=== PATIENT | male | born 1995 | race Caucasian/White ===

== ENCOUNTER 2016-11-13 11:15 | Emergency (ER) | payer OTHER ==
[2016-11-13 11:26] VITALS: BP 143/90; PULSE 101; RESP 18; TEMP 99.1
--- NOTE | 2016-11-13 11:47 | ED ---
General Adult HPI - General Chief complaint: Skin/Abscess/Foreign Body Stated complaint: arm pit abcess Time Seen by Provider: 11/13/16 11:33 Source: patient Mode of arrival: ambulatory Limitations: no limitations - History of Present Illness Initial comments: 21-year-old male presenting for left axillary abscess. Patient states that it began as a pimple and has worsened over the past 5 days. He denies any fevers or chills. He does state that he has been able to express some pus from the site on several different occasions over the past 2 days. He denies any tracking of infection and to his arm or chest. States the area seems to be becoming larger and more painful. He is concerned he may have been exposed to MRSA as he shared a towel with his roommate who has had MRSA infection past. He denies any recent antibiotic therapy. - Related Data Previous Rx's Medication Instructions Recorded HYDROcodone/APAP 5-325MG [[place] 1 tab PO Q6HR PRN #12 tab 11/13/16 5-325] Ibuprofen [Motrin] 800 mg PO Q8HR PRN #21 tab 11/13/16 Sulfamethox-Tmp 800-160Mg [Bactrim 2 each PO Q12HR 10 Days 11/13/16 Ds] Allergies Allergy/AdvReac Type Severity Reaction Status Date / Time No Known Allergies Allergy Verified 11/13/16 11:53 Review of Systems ROS Statement: Those systems with pertinent positive or pertinent negative responses have been documented in the HPI. ROS Other: All systems not noted in ROS Statement are negative. Past Medical History Past Medical History: No Reported History History of Any Multi-Drug Resistant Organisms: None Reported Past Surgical History: Orthopedic Surgery Additional Past Surgical History / Comment(s): foot Past Psychological History: No Psychological Hx Reported Smoking Status: Current every day smoker Past Alcohol Use History: None Reported Past Drug Use History: None Reported General Exam - General Exam Comments Initial Comments: General: Awake and Alert. No acute distress. Does not appear acutely ill. Eyes: ANDREA, EOM intact. No nystagmus. No scleral icterus. HENT: Atraumatic, normocephalic. Mucous membranes moist. Trachea midline. Neck: The neck is supple, there is no tenderness or JVD. Cardiovascular: Regular rate and rhythm. No murmur, rub, or gallop is appreciated. Distal pulses intact. Respiratory: Lungs are clear to auscultation bilaterally. No wheezes, rales, rhonchi. No respiratory distress. Gastrointestinal: Soft, Nontender. No rebound or guarding. Non-distended. No masses or organomegaly noted. No CVA tenderness. Musculoskeletal: No tenderness. Normal ROM. No gross deformity. No strength deficits. Neurological: A&Ox3. CN II-XII grossly intact, There are no obvious motor or sensory deficits. Coordination appears grossly intact. Speech is normal. Skin: Skin is warm and dry. Left axilla with indurated area approximately 3 cm x 3 cm with an overlying pustule. There is mild area of erythema overlying this but no evidence of spreading cellulitis. There is no underlying fluctuance appreciated. Psychiatric: Cooperative, appropriate mood & affect, normal judgment. Limitations: no limitations Course Vital Signs 11/13/16 11:23 Temperature 99.1 F Pulse Rate 101 H Respiratory 18 Rate Blood Pressure 143/90 O2 Sat by Pulse 99 Oximetry Medical Decision Making - Medical Decision Making 21-year-old male presenting for left axillary abscess. There is a pustule in the area and he states the area has had some spontaneous drainage. He was able to express some purulent material earlier today. Examination shows firm and indurated area but no specific fluctuance. Given that it is spontaneously draining, discussed no further I&D at this point. Discussed covering on antibiotics with MRSA coverage for possible exposure. Does not appear septic at this time. Discussed using warm compresses to help draw out infection and not to continue to irritate the area by squeezing. Discussed if this is not improving or worsening to return for I&D. Discussed follow-up with PCP. Discussed concerning signs symptoms for immediate return to the ED. Patient is agreeable with plan and discharge home. Disposition Clinical Impression: Axillary abscess Disposition: HOME SELF-CARE Condition: Stable Instructions: Abscess (ED) Prescriptions: HYDROcodone/APAP 5-325MG [[place]oyle 5-325] 1 tab PO Q6HR PRN #12 tab PRN Reason: Pain Ibuprofen [Motrin] 800 mg PO Q8HR PRN #21 tab PRN Reason: Pain Sulfamethox-Tmp 800-160Mg [Bactrim Ds] 2 each PO Q12HR 10 Days Referrals: None,Stated [Primary Care Provider] - 1-2 days Time of Disposition: 11:47
== END 2016-11-13 12:03 | disposition home or self-care (01) ==
LOC: EC 11:15
DX: L02.412 Cutaneous abscess of left axilla (principal); F17.200 Nicotine dependence, unspecified, uncomplicated
CPT/HCPCS: 99283

== ENCOUNTER 2016-11-15 17:45 | Emergency (ER) | payer OTHER ==
[2016-11-15 17:57] VITALS: BP 126/74; PULSE 74; RESP 16; TEMP 97
--- NOTE | 2016-11-15 18:06 | ED ---
Skin/Abscess/FB HPI - General Chief complaint: Skin/Abscess/Foreign Body Stated complaint: left underarm, poss mrsa Time Seen by Provider: 11/15/16 17:59 Source: patient, RN notes reviewed Mode of arrival: ambulatory Limitations: no limitations - History of Present Illness Initial comments: 21-year-old male presents concerned that he may have MRSA. Patient was seen here and treated for an abscess. Patient states that the medications and he has had much improvement. Patient states he does not know if he has MRSA or not. Patient states that minimal drainage from the area from time to time. Patient denies any history of MRSA. Patient states that his pain has improved and his sensation is getting better. Patient states that he does not smoke he has MRSA or not seen. Patient denies any fever or chills with this.Patient denies any recent fever, chills, shortness of breath, chest pain, back pain, abdominal pain, nausea vomiting, numbness or tingling, dysuria or hematuria, constipation or diarrhea, headaches or visual changes, or any other current symptoms. - Related Data Previous Rx's Medication Instructions Recorded HYDROcodone/APAP 5-325MG [[place] 1 tab PO Q6HR PRN #12 tab 11/13/16 5-325] Ibuprofen [Motrin] 800 mg PO Q8HR PRN #21 tab 11/13/16 Sulfamethox-Tmp 800-160Mg [Bactrim 2 each PO Q12HR 10 Days 11/13/16 Ds] Allergies Allergy/AdvReac Type Severity Reaction Status Date / Time No Known Allergies Allergy Verified 11/15/16 17:57 Review of Systems ROS Statement: Those systems with pertinent positive or pertinent negative responses have been documented in the HPI. ROS Other: All systems not noted in ROS Statement are negative. Past Medical History Past Medical History: No Reported History History of Any Multi-Drug Resistant Organisms: None Reported Past Surgical History: Orthopedic Surgery Additional Past Surgical History / Comment(s): foot Past Psychological History: No Psychological Hx Reported Smoking Status: Current every day smoker Past Alcohol Use History: None Reported Past Drug Use History: None Reported General Exam - General Exam Comments Initial Comments: General: The patient is awake and alert, in no distress, and does not appear acutely ill. Neck: The neck is supple, there is no tenderness. Cardiovascular: There is a regular rate and rhythm. No murmur, rub or gallop is appreciated. Respiratory: Lungs are clear to auscultation, respirations are non-labored, breath sounds are equal. No wheezes, stridor, rales, or rhonchi. Musculoskeletal: Sensation intact with 2+ pulses in the left upper joint. Full range motion of left shoulder. Patient does appear to be an abscess to left axilla that is draining with simple pushing. Minimal erythema surrounding the area. Neurological: CN II-XII intact, There are no obvious motor or sensory deficits. Coordination appears grossly intact. Speech is normal. Skin: Skin is warm and dry and no rashes or lesions are noted. Psychiatric: Normal mood and affect. Limitations: no limitations Course Vital Signs 11/15/16 17:55 Temperature 97.0 F L Pulse Rate 74 Respiratory 16 Rate Blood Pressure 126/74 O2 Sat by Pulse 99 Oximetry Medical Decision Making - Medical Decision Making 21-year-old male presents with what appears to be a left axilla abscess. This and we did drain the area with simple pressure. We did send a wound culture. We discussed continuing the antibiotics as prescribed return. Should follow- up. We discussed all the patient's questions. He stated that he understood any significant plan. Sclerae will be discharged home. Disposition Clinical Impression: Abscess of left axilla Disposition: HOME SELF-CARE Condition: Stable Instructions: Abscess (ED) Additional Instructions: Please use medication as discussed. Please follow up with family doctor if symptoms have not improved over the next two days. Please return to the emergency room if your symptoms increase or worsen or for any other concerns. Referrals: Adelina Bautista MD [STAFF PHYSICIAN] - 1-2 days Time of Disposition: 18:06
== END 2016-11-15 18:17 | disposition home or self-care (01) ==
LOC: EC 17:45
DX: L02.412 Cutaneous abscess of left axilla (principal); F17.200 Nicotine dependence, unspecified, uncomplicated
CPT/HCPCS: 87070; 87077; 87186; 87205; 99283